=== PATIENT | female | born 1975 | race Caucasian/White ===

== ENCOUNTER 2019-03-08 11:29 | Emergency (ER) | payer OTHER | END 2019-03-08 12:40 | disposition home or self-care (01) | LOC: EDH 11:29 | DX: S16.1XXA Strain of muscle, fascia and tendon at neck level, initial encounter (principal); S80.02XA Contusion of left knee, initial encounter; S80.01XA Contusion of right knee, initial encounter; Z98.51 Tubal ligation status; Z72.0 Tobacco use; V49.40XA Driver injured in collision with unspecified motor vehicles in traffic accident, initial encounter; Y93.89 Activity, other specified; Y92.89 Other specified places as the place of occurrence of the external cause; Y99.8 Other external cause status | CPT/HCPCS: 72040 ==